=== PATIENT | female | born 1990 | race Caucasian/White ===

== ENCOUNTER 2018-07-21 22:58 | Emergency (ER) | payer OTHER ==
--- NOTE | 2018-07-21 23:54 | ER ---
Nurse's Notes [facility] Name: Mary Garrison Age: 27 yrs Sex: Female : 1990 Arrival Date: 07/21/2018 Time: 22:59 Bed 30 Private MD: Ken Olivia Diagnosis: Local infection of the skin and subcutaneous tissue, unspecified Presentation: 07/21 23:22 Presenting complaint: Patient states: she noticed some swelling/bump on her left lower mg2 leg tonight \T\ 1900H. denies insect bite or trauma. Transition of care: patient was not received from another setting of care. Onset of symptoms was July 20, 2018. Risk Assessment: Do you want to hurt yourself or someone else? Patient reports no desire to harm self or others. Initial Sepsis Screen: Does the patient meet any 2 criteria? No. Patient's initial sepsis screen is negative. Does the patient have a suspected source of infection? No. Patient's initial sepsis screen is negative. Care prior to arrival: None. 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 - Social history:: Smoking status: Patient/guardian denies using tobacco, Patient uses alcohol, occasionally. Patient/guardian denies using street drugs, IV drugs. - Ebola Screening: : No symptoms or risks identified at this time. Screenin:36 Abuse screen: Denies threats or abuse. Denies injuries from another. Nutritional mg2 screening: No deficits noted. Tuberculosis screening: No symptoms or risk factors identified. Fall Risk None identified. Assessment: 23:36 General: Appears in no apparent distress. comfortable, Behavior is calm, cooperative. mg2 Pain: Complains of pain in left leg Pain does not radiate. Pain currently is 7 out of 10 on a pain scale. Quality of pain is described as aching, Pain began gradually, 2-3 days ago. Is intermittent. Neuro: Level of Consciousness is awake, alert, obeys commands, Oriented to person, place, time, situation. Cardiovascular: Capillary refill < 3 seconds Patient's skin is warm and dry. Respiratory: Airway is patent Respiratory effort is even, unlabored, Respiratory pattern is regular, symmetrical. GI: No signs and/or symptoms were reported involving the gastrointestinal system. : No signs and/or symptoms were reported regarding the genitourinary system. EENT: No signs and/or symptoms were reported regarding the EENT system. Derm: Skin is intact, Skin is pink, warm \T\ dry. normal, swelling. Musculoskeletal: Circulation, motion, and sensation intact. Vital Signs: 23:24 BP 141 / 97; Pulse 91; Resp 18; Temp 99.1(O); Pulse Ox 98% ; Pain 7/10; mg2 ED Course: 22:59 Patient arrived in ED. am2 23:00 Ken Olivia DO is Private Physician. am2 23:21 Aaron Orozco RN is Primary Nurse. mg2 23:24 Triage completed. mg2 23:25 Kris Hinds PA is PHCP. jr8 23:25 Joe Kellogg MD is Attending Physician. jr8 23:36 Arm band placed on. mg2 23:39 Patient has correct armband on for positive identification. mg2 23:53 Ken Olivia DO is Referral Physician. jr8 07/22 00:01 No provider procedures requiring assistance completed. Patient did not have IV access mg2 during this emergency room visit. Administered Medications: No medications were administered Outcome: 07/21 23:54 Discharge ordered by . jr8 07/22 00:02 Discharged to home ambulatory. mg2 Condition: stable Discharge instructions given to patient, Instructed on discharge instructions, follow up and referral plans. medication usage, Demonstrated understanding of instructions, follow-up care, medications, Prescriptions given X 2. 00:02 Patient left the ED. mg2 Signatures: Kris Hinds PA PA jr8 Mirela Nash am2 Aaron Orozco, JEANETH RN mg2
--- NOTE | 2018-07-21 23:54 | EDPHYS ---
Physician Documentation [facility] Name: Mary Garrison Age: 27 yrs Sex: Female : 1990 Arrival Date: 07/21/2018 Time: 22:59 Bed 30 Private MD: Mary Ellen Oliviah ED Physician Joe Kellogg HPI: 07/21 23:48 This 27 yrs old Female presents to ER via Ambulatory with complaints of Leg jr8 Pain. 23:48 The complaints affect the lateral aspect of left calf. Onset: The symptoms/episode jr8 began/occurred acutely, today. Modifying factors: The symptoms are alleviated by nothing. the symptoms are aggravated by pressure. Associated signs and symptoms: The patient has no apparent associated signs or symptoms. Severity of symptoms: At their worst the symptoms were mild, in the emergency department the symptoms are unchanged. The patient has not experienced similar symptoms in the past. The patient has not recently seen a physician. Patient noticed red region to lateral calf after sitting on floor and noticing that area was painful. Concerned for infection . 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 - Social history:: Smoking status: Patient/guardian denies using tobacco, Patient uses alcohol, occasionally. Patient/guardian denies using street drugs, IV drugs. - Ebola Screening: : No symptoms or risks identified at this time. ROS: 23:48 Eyes: Negative for injury, pain, redness, and discharge, ENT: Negative for injury, jr8 pain, and discharge, Neck: Negative for injury, pain, and swelling, Cardiovascular: Negative for chest pain, palpitations, and edema, Respiratory: Negative for shortness of breath, cough, wheezing, and pleuritic chest pain, Abdomen/GI: Negative for abdominal pain, nausea, vomiting, diarrhea, and constipation, Back: Negative for injury and pain, MS/Extremity: Negative for injury and deformity, Neuro: Negative for headache, weakness, numbness, tingling, and seizure. 23:48 Skin: Positive for erythema, swelling, of the lateral aspect of left calf. Exam: 23:48 Constitutional: This is a well developed, well nourished patient who is awake, alert, jr8 and in no acute distress. Cardiovascular: Regular rate and rhythm with a normal S1 and S2. No gallops, murmurs, or rubs. Normal PMI, no JVD. No pulse deficits. Respiratory: Lungs have equal breath sounds bilaterally, clear to auscultation and percussion. No rales, rhonchi or wheezes noted. No increased work of breathing, no retractions or nasal flaring. MS/ Extremity: Pulses equal, no cyanosis. Neurovascular intact. Full, normal range of motion. Equal leg circumference Neuro: Awake and alert, GCS 15, oriented to person, place, time, and situation. Cranial nerves II-XII grossly intact. Motor strength 5/5 in all extremities. Sensory grossly intact. Cerebellar exam normal. Normal gait. 23:48 Skin: cellulitis, that is mild, well demarcated, on the lateral aspect of left calf. Vital Signs: 23:24 BP 141 / 97; Pulse 91; Resp 18; Temp 99.1(O); Pulse Ox 98% ; Pain 7/10; mg2 MDM: 23:25 Patient medically screened. jr8 23:53 Data reviewed: vital signs, nurses notes, and as a result, I will discharge patient. jr8 Data interpreted: Pulse oximetry: on room air is 98 %. Interpretation: normal. Counseling: I had a detailed discussion with the patient and/or guardian regarding: the historical points, exam findings, and any diagnostic results supporting the discharge/admit diagnosis, the need for outpatient follow up, a family practitioner, to return to the emergency department if symptoms worsen or persist or if there are any questions or concerns that arise at home. Administered Medications: No medications were administered Disposition: 07/22 02:13 Co-signature as Attending Physician, Joe Kellogg MD I agree with the assessment and ps1 plan of care. Disposition: 07/21/18 23:54 Discharged to Home. Impression: Local infection of the skin and subcutaneous tissue, unspecified. - Condition is Stable. - Discharge Instructions: Cellulitis, Adult. - Prescriptions for Bactroban 2 % Topical Ointment - Apply to affected area 1 application by TOPICAL route every 12 hours; 30 gram. Bactrim DS 800- 160 mg Oral Tablet - take 1 tablet by ORAL route every 12 hours for 10 days; 20 tablet. - Medication Reconciliation Form, Thank You Letter, Antibiotic Education, Prescription Opioid Use form. - Follow up: Ken Olivia DO; When: 5 - 6 days; Reason: Recheck today's complaints, Continuance of care, Re-evaluation by your physician. - Problem is new. - Symptoms have improved. Signatures: Kris Hinds PA PA jr8 Joe Kellogg MD MD ps1 Aaron Orozco RN RN mg2 Corrections: (The following items were deleted from the chart) 00:02 07/21 23:54 07/21/2018 23:54 Discharged to Home. Impression: Local infection of the mg2 skin and subcutaneous tissue, unspecified. Condition is Stable. Forms are Medication Reconciliation Form, Thank You Letter, Antibiotic Education, Prescription Opioid Use. Follow up: Ken Olivia; When: 5 - 6 days; Reason: Recheck today's complaints, Continuance of care, Re-evaluation by your physician. Problem is new. Symptoms have improved. jr8
== END 2018-07-22 00:02 | disposition home or self-care (01) ==
LOC: ER 22:58
DX: L08.9 Local infection of the skin and subcutaneous tissue, unspecified (principal); Z88.5 Allergy status to narcotic agent
CPT/HCPCS: 99282

== ENCOUNTER 2020-08-18 10:12 | Emergency (ER) | payer BC, OTHER ==
[2020-08-18] MEDS ORDERED: LIDOCAINE VISCOUS 2% SOLN 15 ML UDC ONE (10:57)
[2020-08-18] MEDS ORDERED: LIDOCAINE 1% W/EPI 1:100,000 MDV 20 ML VIAL ONE (10:57)
--- NOTE | 2020-08-18 11:36 | ER ---
Nurse's Notes [facility] Name: Mary Garrison Age: 29 yrs Sex: Female : 1990 Arrival Date: 08/18/2020 Time: 10:17 Bed 20 Private MD: Ken Olivia Diagnosis: Unspecified hemorrhoids Presentation: 08/18 10:31 Coronavirus screen: At this time, the client does not indicate any symptoms associated ah with coronavirus-19. Ebola Screen: No symptoms or risks identified at this time. Initial Sepsis Screen: Does the patient meet any 2 criteria? No. Patient's initial sepsis screen is negative. Does the patient have a suspected source of infection? No. Patient's initial sepsis screen is negative. Risk Assessment: Do you want to hurt yourself or someone else? Patient reports no desire to harm self or others. Onset of symptoms is unknown. 10:31 Method Of Arrival: Ambulatory 10:31 Acuity: RAJNI 3 10:31 Chief complaint: Patient states: hemorrhoid that is hard and painful and not responding ah to OTC medication. Historical: - Allergies: 12:06 vicodine; ah - PMHx: 12:06 None; ah - PSHx: 12:06 None; ah - Immunization history:: Adult Immunizations up to date. - Social history:: Smoking status: Patient denies any tobacco usage or history of. Screenin:32 Abuse screen: Denies threats or abuse. Nutritional screening: No deficits noted. Tuberculosis screening: No symptoms or risk factors identified. Fall Risk None identified. Assessment: 10:30 General: Appears uncomfortable, Behavior is calm, cooperative, appropriate for age. Pain: Complains of pain in hemorrhoids. Neuro: Level of Consciousness is awake, alert, obeys commands, Oriented to person, place, time, situation, Appropriate for age. Cardiovascular: Capillary refill < 3 seconds Patient's skin is warm and dry. Respiratory: Airway is patent Respiratory effort is even, unlabored, Respiratory pattern is regular, symmetrical. GI: Abdomen is non-distended, Rectal exam: Hemorrhoids noted, Reports hemorrhoids, since 1 week, not responding to OTC medications. : No signs and/or symptoms were reported regarding the genitourinary system. Derm: No signs and/or symptoms reported regarding the dermatologic system. Skin is intact, is healthy with good turgor. Vital Signs: 10:24 BP 119 / 74; Pulse 79; Resp 16; Temp 98.6(O); Pulse Ox 100% on R/A; Weight 58.06 kg; [facility] Height 5 ft. 2 in. (157.48 cm); Pain 10/10; 10:24 Body Mass Index 23.41 (58.06 kg, 157.48 cm) [facility] ED Course: 10:17 Patient arrived in ED. [facility] 10:17 Ken Olivia DO is Private Physician. [facility] 10:18 Zak Uriarte PA is PHCP. [facility] 10:18 Eusebio Corea MD is Attending Physician. [facility] 10:25 Patient has correct armband on for positive identification. Bed in low position. Call [facility] light in reach. Warm blanket given. Pulse ox on. NIBP on. 10:29 Lynette Covarrubias, JEANETH is Primary Nurse. 10:31 Triage completed. 11:34 Terell Miller MD is Referral Physician. 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 Patient did not have IV access during this emergency room visit. Administered Medications: 10:50 Drug: Viscous Lidocaine Liquid (4 %) 10 ml Route: Mucous Membrane; Outcome: 11:35 Discharge ordered by . [facility] 12:05 Discharged to home ambulatory. 12:05 Condition: good 12:05 Discharge instructions given to patient, Instructed on discharge instructions, follow up and referral plans. Demonstrated understanding of instructions, follow-up care, medications. 12:08 Patient left the ED. Signatures: Zak Uriarte PA PA jmm Martinez, Maria [facility] Macho Persaud [facility] Lynette Covarrubias, RN RN
--- NOTE | 2020-08-18 11:36 | EDPHYS ---
Physician Documentation [facility] Name: Mary Garrison Age: 29 yrs Sex: Female : 1990 Arrival Date: 08/18/2020 Time: 10:17 Bed 20 Private MD: Ken Olivia ED Physician Eusebio Corea HPI: 08/18 10:20 This 29 yrs old Female presents to ER via Ambulatory with complaints of jmm Hemorrhoids. 10:20 The patient presents to the emergency department with swelling. Onset: The jmm symptoms/episode began/occurred gradually. Modifying factors: The symptoms are alleviated by nothing, The symptoms are aggravated by nothing. This is a 29 year old female that presents to the ED with complaints of external hemorrhoids which have increased in swelling since onset. Patient admits to mild bleeding. Denies fever. Has had similar episodes in the past but more intense today. . Historical: - Allergies: 12:06 vicodine; ah - PMHx: 12:06 None; ah - PSHx: 12:06 None; ah - Immunization history:: Adult Immunizations up to date. - Social history:: Smoking status: Patient denies any tobacco usage or history of. ROS: 10:20 Constitutional: Negative for fever, chills, and weight loss, Cardiovascular: Negative jmm for chest pain, palpitations, and edema, Respiratory: Negative for shortness of breath, cough, wheezing, and pleuritic chest pain. 10:20 : Positive for rectal pain. 10:20 All other systems are negative. Exam: 10:20 Constitutional: This is a well developed, well nourished patient who is awake, alert, jmm and in no acute distress. Head/Face: atraumatic. Eyes: EOMI, no conjunctival erythema appreciated ENT: Moist Mucus Membranes Neck: Trachea midline, Supple Chest/axilla: Normal chest wall appearance and motion. Cardiovascular: Regular rate and rhythm. No edema appreciated Respiratory: Normal respirations, no respiratory distress appreciated 10:20 Back: Normal ROM Skin: General appearance color normal MS/ Extremity: Moves all extremities, no obvious deformities appreciated, no edema noted to the lower extremities Neuro: Awake and alert, normal gait Psych: Behavior is normal, Mood is normal, Patient is cooperative and pleasant 10:20 Abdomen/GI: Inspection: abdomen appears normal, Bowel sounds: normal, Rectal exam: hemorrhoid(s), external, with inflammation, with pain, without thrombosis. Vital Signs: 10:24 BP 119 / 74; Pulse 79; Resp 16; Temp 98.6(O); Pulse Ox 100% on R/A; Weight 58.06 kg; 5 Height 5 ft. 2 in. (157.48 cm); Pain 10/10; 10:24 Body Mass Index 23.41 (58.06 kg, 157.48 cm) [facility] MDM: 10:29 Patient medically screened. [facility] 11:31 Data reviewed: vital signs, nurses notes. Counseling: I had a detailed discussion with analilia the patient and/or guardian regarding: the historical points, exam findings, and any diagnostic results supporting the discharge/admit diagnosis, the need for outpatient follow up, to return to the emergency department if symptoms worsen or persist or if there are any questions or concerns that arise at home. ED course: I discussed risks/benefits of incision of hemorrhoid vs medical treatment. Patient elected , through shared decision making, to opt for medical treatment and will return to the ED if symptoms worsen. . 08/18 10:20 Order name: Natalie suero; Complete Time: 10:29 [facility] Administered Medications: 10:50 Drug: Viscous Lidocaine Liquid (4 %) 10 ml Route: Mucous Membrane; Disposition: 08/19 07:11 Co-signature as Attending Physician, Eusebio Corea MD I agree with the assessment and [facility] plan of care. Disposition: 08/18/20 11:35 Discharged to Home. Impression: Unspecified hemorrhoids. - Condition is Stable. - Discharge Instructions: Hemorrhoids, How to Take a Sitz Bath. - Prescriptions for Anusol- HC 2.5 % Rectal Cream - Apply to affected area 1 application by TOPICAL route every 8 hours As needed; 30 gram. Colace 100 mg Oral Capsule - take 1 tablet by ORAL route 2-3 times daily; 30 tablet. - Medication Reconciliation Form, Thank You Letter, Antibiotic Education, Prescription Opioid Use form. - Follow up: Terell Miller MD; When: 2 - 3 days; Reason: Recheck today's complaints, Continuance of care, Re-evaluation by your physician. Signatures: Eusebio Corea MD MD cha Mickail, Joel, PA PA [facility] Lynette Covarrubias, RN [facility] Corrections: (The following items were deleted from the chart) 08/18 11:35 11:35 08/18/2020 11:35 Discharged to Home. Impression: Hemorrhoids and perianal venous jmm thrombosis. Condition is Stable. Forms are Medication Reconciliation Form, Thank You Letter, Antibiotic Education, Prescription Opioid Use. Follow up: Terell Miller; When: 2 - 3 days; Reason: Recheck today's complaints, Continuance of care, Re-evaluation by your physician. analilia 12:08 11:35 08/18/2020 11:35 Discharged to Home. Impression: Unspecified hemorrhoids. Condition is Stable. Discharge Instructions: Hemorrhoids. Forms are Medication Reconciliation Form, Thank You Letter, Antibiotic Education, Prescription Opioid Use. Follow up: Terell Miller; When: 2 - 3 days; Reason: Recheck today's complaints, Continuance of care, Re-evaluation by your physician. analilia
[2020-08-18 12:13] VITALS: BP 119/74; TEMP 98.6; O2SAT 100
--- OUTSIDE RECORDS SUMMARY | 2020-08-22 00:26 | XMS REPORT ---
:1990 Author Organization [employer] Care Team Providers Name Role Phone Ken Olivia Provider Role Unavailable Allergies No Known Allergies Problems Problem Type Condition Code Onset Dates Condition Statu s Problem Insomnia, unspecified type G47.00 A ctive Problem Chronic fatigue R53.82 Active Assessment Adult BMI 25.0-25.9 kg/sq m Z68.25 Active Problem Migraine without aura and without G43.009 Active status migrainosus, not intractable Problem Vitamin D deficiency E55.9 Active Problem Estrogen excess E28.0 Active Problem Anxiety disorder F41.9 Active Problem Allergic rhinitis, seasonal J30.2 Active Problem Depression F32.9 Active Problem IBS (irritable bowel syndrome) K58.9 Active Medications Medication Code Code Instructions Start End Status Dosage System Date Date BusPIRone HCl ND 64957106120 5 MG Orally Active 1 tablet TWICE a day Lomaira ND 25575380138 8 MG Orally Jul 04Jul Active 1 tablet Three times a 2019 19, 30 minutes day 2019 before meals NuvaRing ND 00721211726 0.12-0.015 Active 1 ring MG/24HR Vaginal leave in place for 3 weeks, remove, and replace with a new ring after 7 day break Phentermine HCl ND 30868939068 15 MG Orally May 03May Inacti ve Take 1 Once a day 2019 QAm x 2 weeks then 2 Caps qAM x 1 week Fluoxetine HCl ND 88588679410 20 MG Orally Active Take 1/2 Once a day tab QD x 1 week then 1 tab QD Sumatriptan ND 63515941178 50 MG Orally Active Dev e 1 tab Succinate Once a day at the onset of severe COLE. May repeat x 1 in 2 hours. Max 2 tabs/24 hours. Results No Known Results Summary Purpose [employer] Submission
--- OUTSIDE RECORDS SUMMARY | 2020-08-22 00:26 | XMS REPORT ---
:1990 Author Organization [employer] Care Team Providers Name Role Phone Mary Ellen Oliviah Provider Role Unavailable Allergies, Adverse Reactions, Alerts Substance Reaction Event Type N.K.D.A. Info Not Available Non Drug Allergy Problems Problem Type Condition Code Onset Dates Condition Statu s Problem Insomnia, unspecified type G47.00 A ctive Problem Chronic fatigue R53.82 Active Problem Migraine without aura and without G43.009 Active status migrainosus, not intractable Assessment Encounter for dietary counseling Z71.3 Active and surveillance Problem Vitamin D deficiency E55.9 Active Problem Estrogen excess E28.0 Active Problem Anxiety disorder F41.9 Active Problem Allergic rhinitis, seasonal J30.2 Active Problem Depression F32.9 Active Problem IBS (irritable bowel syndrome) K58.9 Active Assessment Vitamin D deficiency E55.9 Active Assessment Depression F32.9 Active Assessment IBS (irritable bowel syndrome) K58.9 Active Assessment Allergic rhinitis, seasonal J30.2 Active Assessment Anxiety disorder F41.9 Active Assessment Insomnia, unspecified type G47.00 A ctive Assessment Estrogen excess E28.0 Active Assessment Adult BMI 25.0-25.9 kg/sq m Z68.25 Active Assessment Chronic fatigue R53.82 Active Assessment Migraine without aura and without G43.009 Active status migrainosus, not intractable Medications Medication Code Code Instructions Start End Status Dosage System Date Date Sumatriptan [facility] 61778327533 50 MG Orally Active Dev e 1 tab Succinate Once a day at the onset of severe COLE. May repeat x 1 in 2 hours. Max 2 tabs/24 hours. Phentermine HCl [facility] 83892785693 37.5 MG Orally Activ e 1 capsule Once a day BusPIRone HCl [facility] 32141172733 5 MG Orally Active 1 tablet TWICE a day BusPIRone HCl ND 25500478971 5 MG Orally Inactive 1 tablet TWICE a day NuvaRing [facility] 02574084131 0.12-0.015 Active 1 ring MG/24HR Vaginal leave in place for 3 weeks, remove, and replace with a new ring after 7 day break Fluoxetine HCl [facility] 94503542284 20 MG Orally Active Take 1/2 Once a day tab QD x 1 week then 1 tab QD Results No Known Results Summary Purpose [employer] Submission
--- OUTSIDE RECORDS SUMMARY | 2020-08-22 00:26 | XMS REPORT ---
[...] Start End Status Dosage System Date Date Fluoxetine HCl ND 69861799881 20 MG Orally Active Take 1/2 Once a day tab QD x 1 week then 1 tab QD Phentermine HCl ND 34235020948 8 MG Orally Active 1 capsule Three times a day BusPIRone HCl ND 54935919632 5 MG Orally Active 1 tablet TWICE a day NuvaRing ND 85698393205 0.12-0.015 Active 1 ring MG/24HR Vaginal leave in place for 3 weeks, remove, and replace with a new ring after 7 day break BusPIRone HCl ND 85028613748 5 MG Orally Inactive 1 tablet TWICE a day Sumatriptan ND 22905707431 50 MG Orally Active Dev e 1 tab Succinate Once a day at the onset of severe COLE. May repeat x 1 in 2 hours. Max 2 tabs/24 hours. Results No Known Results Summary Purpose [employer] Submission
--- OUTSIDE RECORDS SUMMARY | 2020-08-22 00:26 | XMS REPORT ---
[...] Status Dosage System Date Date BusPIRone HCl NDC 97516664784 5 MG Orally Active 1 tablet TWICE a day Lomaira NDC 98888177797 8 MG Orally Jul 04Jul Active 1 tablet Three times a 2019 19, 30 minutes day 2020 before meals Lomaira NDC 27499781668 8 MG Orally Jul 23, Aug 22, Active 1 table t Three times a 2019 2019 30 minutes day before meals Sumatriptan ND 17192140299 50 MG Orally Active Dev e 1 tab Succinate Once a day at the onset of severe COLE. May repeat x 1 in 2 hours. Max 2 tabs/24 hours. BusPIRone HCl NDC 14131968518 5 MG Orally Inactive 1 tablet TWICE a day NuvaRing [facility] 20311367357 0.12-0.015 Active 1 ring MG/24HR Vaginal leave in place for 3 weeks, remove, and replace with a new ring after 7 day break Fluoxetine HCl [facility] 88721860865 20 MG Orally Active Take 1/2 Once a day tab QD x 1 week then 1 tab QD Results No Known Results Summary Purpose [employer] Submission
--- OUTSIDE RECORDS SUMMARY | 2020-08-22 00:26 | XMS REPORT ---
:1990 Author Organization eClinicalWorks Care Team Providers Name Role Phone OliviaMary Ellenh Provider Role Unavailable Allergies No Known Allergies Problems Problem Type Condition Code Onset Dates Condition Statu s Problem Insomnia, unspecified type G47.00 A ctive Problem Chronic fatigue R53.82 Active Assessment Recurrent oral ulcers K13.79 Active Problem Migraine without aura and without G43.009 Active status migrainosus, not intractable Problem Vitamin D deficiency E55.9 Active Problem Estrogen excess E28.0 Active Problem Anxiety disorder F41.9 Active Problem Allergic rhinitis, seasonal J30.2 Active Problem Depression F32.9 Active Problem IBS (irritable bowel syndrome) K58.9 Active Medications No Known Medications Results No Known Results Summary Purpose eClinicalWorks Submission
--- OUTSIDE RECORDS SUMMARY | 2020-08-22 00:27 | XMS REPORT | Continuity of Care Document ---
:1990 Author Organization [facility] t Address [address] [place] [address] Care Team Providers Name Role Phone Unavailable Unavailable Unavailable Problems This patient has no known problems. Allergies, Adverse Reactions, Alerts This patient has no known allergies or adverse reactions. Medications Ordered Filled Start Stop Current Ordering Indication Dosage Frequency Signature Comments Components Source Medication Medication Date Date Medication? Clinician (SIG) Name Name Lomaira Lomaira 2020- Yes Ken [address] [facility] 9-08 10-08 Olivia 30 minutes [facility] :00 meals l Outpat[facility] ent Clinics BusPIRone BusPIRone Yes Ken [address] [facility] HCl HCl 8-28 [facility] Sumatriptan Sumatriptan Yes Ken Take [address] [facility] Succinate Succinate 8-28 Olivia at the [facility] - 00[facility]: onset of [facility] 00 severe COLE. l May repeat Outpati x 1 in 2 ent hours. Max Clinics 2 tabs/24 hours. Fluoxetine Fluoxetine Yes Ken Take 1/[address] [facility] HCl HCl Olivia tab QD x 1 [facility] then [facility] NuvaRing NuvaRing Yes Ken [address] [facility] in [facility] for [facility] 3 weeks, l remove, Outpati and ent replace Clinics with a new ring after 7 day break Procedures This patient has no known procedures. Encounters Start End Encounter Admission Attending Care Care Encounter Source Date/Time Date/Time Type Type Clinicians Facility Department ID 2020-08-20 2020-08-20 Outpatient [facility] [id number] [facility]00 [facility] Outpat[facility] Clinics 2020-07-23 2020-07-23 [facility] [id number] [facility] 13:30:00 13:30:00 t [employer] [facility] Medicine l Medicine Outpati ent Clinics 2020-07-03 2020-07-03 [facility] [id number] [facility] 15:45:00 15:45:00 t [place] s - USEREADY [facility] Medicine l Medicine Outpati ent Clinics 2020-06-24 2020-06-24 [facility] [id number] 13:45:00 13:45:00 t [place] s [facility] Medicine Outpati ent Clinics 2020-05-27 2020-05-27 [facility] [id number] [facility] 14:00:00 14:00:00 t [employer] [facility] Medicine l Medicine Outpati ent Clinics 2020-05-21 2020-05-21 [facility] [id number] 11:23:00 11:23:00 t [employer] [facility] Medicine l Medicine Outpati ent Clinics 2020-05-03 2020-05-03 [facility] [id number] 10:15:00 10:15:00 t [employer] [facility] l Medicine Outpati ent Clinics 2020-04-25 2020-04-25 [facility] [id number] 08:45:00 08:45:00 t [place] s [facility] Medicine Outpati ent Clinics 2020-04-09 2020-04-09 [facility] [id number] [facility] 16:15:00 16:15:00 t [place] s [facility] l Medicine Outpati ent Clinics 2018-08-09 2018-08-09 [facility] [id number] [facility] 13:00:00 13:00:00 t [employer] [facility] 2018-07-12 2018-07-12 [facility] [id number] [facility] 13:30:00 13:30:00 t [employer] [facility] 2018-06-23 2018-06-23 [facility] [id number] [facility] 15:30:00 15:30:00 [facility] [facility] ent Clinics Results This patient has no known results.
== END 2020-08-18 12:08 | disposition home or self-care (01) ==
LOC: ER 10:12
DX: K64.9 Unspecified hemorrhoids (principal); Z88.5 Allergy status to narcotic agent
CPT/HCPCS: 99283

== ENCOUNTER 2021-03-01 23:11 | Emergency (ER) | payer BC ==
--- OUTSIDE RECORDS SUMMARY | 2021-03-01 23:14 | XMS REPORT | Continuity of Care Document ---
:1990 Author Organization [facility] t Address [address] [place] [address] Care Team Providers Name Role Phone Unavailable Unavailable Unavailable Problems This patient has no known problems. Allergies, Adverse Reactions, Alerts This patient has no known allergies or adverse reactions. Medications Ordered Filled Start Stop Current Ordering Indication Dosage Frequency Signature Comments Components Source Medication Medication Date Date Medication? Clinician (SIG) Name Name Robe Kisermaira 2020-0 2020- No Ken [address] [facility] 9-08 10-08 Olivia 30 minutes [facility] before [facility] 00 :00 meals l Outpati ent Clinics BusPIRone BusPIRone 0 Yes Ken [address] [facility] HCl HCl 8-28 [facility] Sumatriptan Sumatriptan Yes Ken Take [...] week then [facility] 1 [facility] NuvaRing NuvaRing Yes Ken [address] [facility] in [facility] for [facility] 3 weeks, l remove, Outpati and ent replace Clinics with a new ring after 7 day break Procedures This patient has no known procedures. Encounters Start End Encounter Admission Attending Care Care Encounter Source Date/Time Date/Time Type Type Clinicians Facility Department ID 2021-02-26 2021-02-26 Outpatient [facility] [id number] [facility] 2021-02-21 2021-02-21 Outpatient [facility] [id number] [facility] 2021-01-17 2021-01-17 Outpatient [facility] [id number] [facility] 2020-12-20 2020-12-20 Outpatient [facility] [id number] [facility] 2020-11-19 2020-11-19 Outpatient [facility] [id number] [facility] 2020-10-15 2020-10-15 Outpatient [facility] [id number] [facility] 2020-10-08 2020-10-08 Outpatient [facility] [id number] [facility] 2020-09-19 2020-09-19 Outpatient [facility] [id number] [facility] 2020-09-17 2020-09-17 Outpatient [facility] [id number] [facility] 2020-08-20 2020-08-20 Outpatient [facility] [id number] [facility] 2020-07-23 2020-07-23 [facility] [id number] [facility] 13:30:00 13:30:00 Fly [place] [facility] Outpati ent Clinics 2020-07-03 2020-07-03 [facility] [id number] [facility] 15:45:00 15:45:00 [place] [employer] [place] s - Drive [facility] l Medicine Outpati ent Clinics 2020-06-24 2020-06-24 [facility] [id number] 13:45:00 13:45:00 [place] [employer] s - Drive [facility] Medicine l Medicine Outpati ent Clinics 2020-05-27 2020-05-27 [facility] [id number] [address] 14:00:00 14:00:00 [place] [employer] s - Drive [facility] Medicine l Medicine Outpati ent Clinics 2020-05-21 2020-05-21 [facility] [id number] [facility] 11:23:00 11:23:00 [place] - Drive [facility] l Medicine Outpati ent Clinics 2020-05-03 2020-05-03 [facility] [id number] [address] 10:15:00 10:15:00 [place] [employer] s - Drive [facility] Medicine l Medicine Outpati ent Clinics 2020-04-25 2020-04-25 [facility] [id number] [address] 08:45:00 08:45:00 [place] - Drive [facility] Medicine l Medicine Outpati ent Clinics 2020-04-09 2020-04-09 [facility] [id number] 16:15:00 16:15:00 [place] [employer] s - Drive [facility] Medicine l Medicine Outpati ent Clinics 2018-08-09 2018-08-09 [facility] [id number] 13:00:00 13:00:00 [place] [employer] [place] - Drive [facility] Medicine l Medicine Outpati ent Clinics 2018-07-12 2018-07-12 [facility] [id number] [facility] 13:30:00 13:30:00 [place] - Drive [facility] Medicine l Medicine Outpati ent Clinics 2018-06-23 2018-06-23 [facility] [id number] 15:30:00 15:30:00 [place] - Drive [facility] l Medicine Outpati ent Clinics Results This patient has no known results.
[2021-03-02] MEDS ORDERED: MORPHINE 4 MG/ML SYR ONE (01:35)
[2021-03-02 01:43] LABS: Urine Specific Gravity/Preg 1.025 (1.005-1.030)
--- NOTE | 2021-03-02 02:05 | EDPHYS ---
Physician Documentation [facility] Name: Mary Garrison Age: 30 yrs Sex: Female : 1990 Arrival Date: 03/01/2021 Time: 23:14 Bed 6 Private MD: ED Physician Sudarshan Gillespie HPI: 03/02 00:53 This 30 yrs old Female presents to ER via Ambulatory with complaints of Back mh7 Pain, Back Injury. 00:53 The patient presents with pain that is acute, and an injury. The symptoms are located mh7 in the thoracic area. 00:54 Onset: The symptoms/episode began/occurred just prior to arrival, today. The pain does mh7 not radiate. 00:54 Associated signs and symptoms: Pertinent negatives: abdominal pain, chest pain, mh7 constipation, dysuria, fever, headache, hematuria, incontinence, nausea, numbness, tingling, urinary retention, vomiting, weakness. The problem was sustained when lifting . Modifying factors: The patient symptoms are alleviated by nothing, the patient symptoms are aggravated by any movement. Severity of symptoms: At their worst the symptoms were moderate, earlier today, in the emergency department the symptoms are unchanged. [employer]: 03/01 23:39 LMP N/A - Irregular menses em Historical: - Allergies: 23:39 vicodine; em - PMHx: 23:39 None; em - PSHx: 23:39 None; em - Immunization history:: Adult Immunizations up to date. - Social history:: Smoking status: Patient denies any tobacco usage or history of. ROS: 03/02 00:54 Constitutional: Negative for fever, chills, and weight loss, Eyes: Negative for injury, mh7 pain, redness, and discharge, ENT: Negative for injury, pain, and discharge, Neck: Negative for injury, pain, and swelling, Cardiovascular: Negative for chest pain, palpitations, and edema, Respiratory: Negative for shortness of breath, cough, wheezing, and pleuritic chest pain, Abdomen/GI: Negative for abdominal pain, nausea, vomiting, diarrhea, and constipation, : Negative for injury, bleeding, discharge, and swelling, MS/Extremity: Negative for injury and deformity, Skin: Negative for injury, rash, and discoloration, Neuro: Negative for headache, weakness, numbness, tingling, and seizure, Psych: Negative for depression, anxiety, suicide ideation, homicidal ideation, and hallucinations, Allergy/Immunology: Negative for hives, rash, and allergies, Endocrine: Negative for neck swelling, polydipsia, polyuria, polyphagia, and marked weight changes, Hematologic/Lymphatic: Negative for swollen nodes, abnormal bleeding, and unusual bruising. Exam: 00:54 Head/Face: Normocephalic, atraumatic. Eyes: Pupils equal round and reactive to light, mh7 extra-ocular motions intact. Lids and lashes normal. Conjunctiva and sclera are non-icteric and not injected. Cornea within normal limits. Periorbital areas with no swelling, redness, or edema. Neck: Trachea midline, no thyromegaly or masses palpated, and no cervical lymphadenopathy. Supple, full range of motion without nuchal rigidity, or vertebral point tenderness. No Meningismus. Chest/axilla: Normal chest wall appearance and motion. Nontender with no deformity. No lesions are appreciated. Cardiovascular: Regular rate and rhythm with a normal S1 and S2. No gallops, murmurs, or rubs. Normal PMI, no JVD. No pulse deficits. Respiratory: Lungs have equal breath sounds bilaterally, clear to auscultation and percussion. No rales, rhonchi or wheezes noted. No increased work of breathing, no retractions or nasal flaring. Abdomen/GI: Soft, non-tender, with normal bowel sounds. No distension or tympany. No guarding or rebound. No evidence of tenderness throughout. 00:54 Skin: Warm, dry with normal turgor. Normal color with no rashes, no lesions, and no evidence of cellulitis. MS/ Extremity: Pulses equal, no cyanosis. Neurovascular intact. Full, normal range of motion. Neuro: Awake and alert, GCS 15, oriented to person, place, time, and situation. Cranial nerves II-XII grossly intact. Motor strength 5/5 in all extremities. Sensory grossly intact. Cerebellar exam normal. Normal gait. Psych: Awake, alert, with orientation to person, place and time. Behavior, mood, and affect are within normal limits. 00:54 Constitutional: The patient appears in no acute distress, alert, awake, uncomfortable. 00:54 Back: pain, that is moderate, of the thoracic area, ROM is painful, with flexion, normal spinal alignment noted, CVA tenderness, is absent, muscle spasm, is not present, Straight leg raises: of both lower extremities does not illicit pain. Vital Signs: 03/01 23:36 BP 138 / 90; Pulse 97; Resp 18; Temp 98.7; Pulse Ox 100% on R/A; Weight 60.78 kg; em Height 5 ft. 3 in. (160.02 cm); Pain 7/10; 03/02 02:25 BP 129 / 94; Pulse 90; Resp 16; Pulse Ox 99% on R/A; lp1 03/01 23:36 Body Mass Index 23.74 (60.78 kg, 160.02 cm) em MDM: 02:02 Differential diagnosis: Fracture Ligament Injury Osteoarthritis ruptured disc, sprain, mh7 vertebral fracture. Data reviewed: vital signs, nurses notes, lab test result(s), UPT: negative. Data interpreted: Pulse oximetry: on room air is 100 %. Interpretation: normal. Counseling: I had a detailed discussion with the patient and/or guardian regarding: the historical points, exam findings, and any diagnostic results supporting the discharge/admit diagnosis, the presence of at least one elevated blood pressure reading (>120/80) during this emergency department visit, lab results, radiology results. Response to treatment: the patient's symptoms have markedly improved after treatment. 02:04 Patient medically screened. [facility] 03/02 00:55 Order name: Urine --Ancillary (enter results); Complete Time: 01:59 tt3 03/02 00:28 Order name: CT Thoracic Spine Wo Cont 7 03/02 00:28 Order name: Urine Test (obtain specimen); Complete Time: 00:46 [facility] Administered Medications: 01:22 Drug: morphine 4 mg Route: IM; Site: right deltoid; rv 02:17 Follow up: Response: No adverse reaction lp1 02:20 Drug: TORadol (ketorolac) 60 mg Route: IM; Site: left gluteus; lp1 02:25 Follow up: Response: Medication administered at discharge. lp1 Disposition: 03/02/21 02:04 Discharged to Home. Impression: Back Sprain, Upper. - Condition is Stable. - Discharge Instructions: Back Injury Prevention, [id number], Back Pain, Adult, Shmx-[id number], Back Exercises, Gbmr-zh-[id number]. - Prescriptions for Ibuprofen 600 mg Oral Tablet - take 1 tablet by ORAL route every 8 hours As needed take with food; 15 tablet. Robaxin 500 mg Oral Tablet - take 1 tablet by ORAL route every 6 hours As needed; 20 tablet. - Medication Reconciliation Form, Thank You Letter, Antibiotic Education, Prescription Opioid Use form. - Follow up: Private Physician; When: 1 - 2 days; Reason: Worsening of condition, Recheck today's complaints, Continuance of care, Re-evaluation by your physician. - Problem is new. - Symptoms have improved. Signatures: Dispatcher [employer] EDMS Hunter You RN RN em Cheryl Wilson RN RN lp1 Ruben Ramirez RN RN Sudarshan Gillespie MD MD mh7 Corrections: (The following items were deleted from the chart) 02:26 02:04 03/02/2021 02:04 Discharged to Home. Impression: Back Sprain, Upper. Condition is lp1 Stable. Forms are Medication Reconciliation Form, Thank You Letter, Antibiotic Education, Prescription Opioid Use. Follow up: Private Physician; When: 1 - 2 days; Reason: Worsening of condition, Recheck today's complaints, Continuance of care, Re-evaluation by your physician. Problem is new. Symptoms have improved. mh7
--- NOTE | 2021-03-02 02:05 | ER ---
Nurse's Notes [facility] Name: Mary Garrison Age: 30 yrs Sex: Female : 1990 Arrival Date: 03/01/2021 Time: 23:14 Bed 6 Private MD: Diagnosis: Back Sprain, Upper Presentation: 03/01 23:36 Chief complaint: Patient states: was moving on the bed which is bed bound, and em hurt back today, reports lower back pain, does not radiate down legs. Coronavirus screen: Client denies travel out of the [place] in the last 14 days. Ebola Screen: Patient negative for fever greater than or equal to 101.5 degrees Fahrenheit, and additional compatible Ebola Virus Disease symptoms Patient denies exposure to infectious person. Patient denies travel to an Ebola-affected area in the 21 days before illness onset. No symptoms or risks identified at this time. Initial Sepsis Screen: Does the patient meet any 2 criteria? HR > 90 bpm. No. Patient's initial sepsis screen is negative. Does the patient have a suspected source of infection? No. Patient's initial sepsis screen is negative. Risk Assessment: Do you want to hurt yourself or someone else? Patient reports no desire to harm self or others. Onset of symptoms was March 01, 2021. 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 - Social history:: Smoking status: Patient denies any tobacco usage or history of. Screenin/18 00:19 Abuse screen: Denies threats or abuse. Denies injuries from another. Nutritional lp1 screening: No deficits noted. Tuberculosis screening: No symptoms or risk factors identified. Fall Risk None identified. Assessment: 00:13 General: Appears in no apparent distress. Behavior is appropriate for age. Pain: lp1 Complains of pain in thoracic area Quality of pain is described as sharp, Aggravated by increased activity. Neuro: Level of Consciousness is awake, alert, obeys commands, Oriented to person, place, time, situation, Gait is steady, Intact. Cardiovascular: Patient's skin is warm and dry. Respiratory: Respiratory effort is even, unlabored. GI: No signs and/or symptoms were reported involving the gastrointestinal system. : No signs and/or symptoms were reported regarding the genitourinary system. EENT: No signs and/or symptoms were reported regarding the EENT system. Derm: Skin is pink, warm \T\ dry. Musculoskeletal: No deficits noted. 02:14 Reassessment: Patient reports some relief with Morphine administered, requesting to lp1 have something for pain until she can have prescriptions filled later today; Verbal order for Toradol 60mg IM now. Vital Signs: 03/01 23:36 BP 138 / 90; Pulse 97; Resp 18; Temp 98.7; Pulse Ox 100% on R/A; Weight 60.78 kg; em Height 5 ft. 3 in. (160.02 cm); Pain 7/10; 03/02 02:25 BP 129 / 94; Pulse 90; Resp 16; Pulse Ox 99% on R/A; lp1 03/01 23:36 Body Mass Index 23.74 (60.78 kg, 160.02 cm) em ED Course: 03/01 23:14 Patient arrived in ED. bp1 23:38 Triage completed. em 23:39 Arm band placed on. em 03/02 00:00 Sudarshan Gillespie MD is Attending Physician. [facility] 00:05 Cheryl Wilson, JEANETH is Primary Nurse. lp1 00:20 Patient has correct armband on for positive identification. lp1 01:15 CT Thoracic Spine Wo Cont In Process Unspecified. EDMS 02:25 No provider procedures requiring assistance completed. Patient did not have IV access lp1 during this emergency room visit. Administered Medications: 01:22 Drug: morphine 4 mg Route: IM; Site: right deltoid; rv 02:17 Follow up: Response: No adverse reaction lp1 02:20 Drug: TORadol (ketorolac) 60 mg Route: IM; Site: left gluteus; lp1 02:25 Follow up: Response: Medication administered at discharge. lp1 Outcome: 02:04 Discharge ordered by . 7 02:25 Discharged to home ambulatory, with friend. lp1 02:25 Condition: good 02:25 Discharge instructions given to patient, Instructed on discharge instructions, follow up and referral plans. medication usage, Demonstrated understanding of instructions, follow-up care, medications, Prescriptions given X 2. 02:26 Patient left the ED. lp1 Signatures: Dispatcher [employer] EDHunter Owusu RN RN em Pena, Laura, RN RN lp1 Ruben Ramirez RN RN rv [place]ia[place], Brittany bp1 Holmes, Maurice, MD MD 7
[2021-03-02] MEDS ORDERED: KETOROLAC 30 MG/ML INJ ONE (02:32)
[2021-03-02 02:39] VITALS: TEMP 98.7
[2021-03-02 02:48] VITALS: BP 129/94; O2SAT 99
--- NOTE | 2021-03-03 11:55 | RAD REPORT ---
EXAM DESCRIPTION: CTThoracic Spine W/o Cont03/02/2021 6:29 am COMPARISON: None. CLINICAL HISTORY: HS MAIN Injury;Pain TECHNIQUE: Axial CT images were obtained through the entire thoracic spine without contrast. Sagit dong and coronal reconstructions are provided. Automated exposure control was utilized on this examina tion as a dose lowering technique. FINDINGS: Vertebrae: Vertebral statures and alignment are normal. No acute fracture, dislocation o r destructive osseous process is present. Spinal canal, foramina, and facet joints: No significant spinal canal or foraminal stenoses. No significant facet arthropathy. Paraspinous soft-tissues: Normal. Other Findings: None. IMPRESSION: No acute findings of the thoracic spine. Electronically signed by: Zeke Dumont MD 03/02/2021 1:28 AM CDT Due to temporary technical issues with the PACS/Fluency reporting system, reports are being signed by the in house radiologist without review as a courtesy to ensure prompt reporting. The interpreting r adiologist is fully responsible for the content of the report.
[2021-03-03 12:07] LABS: Urine Blood NEGATIVE (Negative); Urine Glucose NEGATIVE (Negative); Urine Protein NEGATIVE (Negative); Urine Specific Gravity 1.025 (1.005-1.030)
[2021-03-04 14:47] LABS: Urine Blood Negative (Negative); Urine Glucose Negative (Negative); Urine Protein Negative (Negative); Urine Specific Gravity 1.025 (1.005-1.030)
== END 2021-03-02 02:26 | disposition home or self-care (01) ==
LOC: ER 23:11
DX: S23.3XXA Sprain of ligaments of thoracic spine, initial encounter (principal); X50.0XXA Overexertion from strenuous movement or load, initial encounter; Y93.89 Activity, other specified; Y92.9 Unspecified place or not applicable; Z88.5 Allergy status to narcotic agent
CPT/HCPCS: 72128; 81003; 81025; 96372; 99283

== ENCOUNTER 2021-09-26 11:21 | Emergency (ER) | payer BC ==
[2021-09-26 11:36] LABS: Urine Blood 1+ (Negative); Urine Glucose Negative (Negative); Urine Protein 2+ (Negative); Urine pH 8.5 (5.0-7.0)
[2021-09-26 12:16] LABS: Urine Bacteria >50 /HPF (<20); Urine RBC <5 /HPF (NONE SEEN)
[2021-09-26] MEDS ORDERED: FLUCONAZOLE 100 MG TAB ONE (13:00)
--- NOTE | 2021-09-26 13:00 | ER ---
Nurse's Notes [facility] Name: Mary Garrison Age: 31 yrs Sex: Female : 1990 Arrival Date: 09/26/2021 Time: 11:26 Bed 19 Private MD: Ken Olivia Diagnosis: UTI/ Urinary tract infection, site not specified Presentation: 09/26 11:46 Chief complaint: Patient states: Pain with urination x3 weeks. States lower back pain, vg1 NVD, and odor to urine. Denies ABD pain or blood in urine. Coronavirus screen: Vaccine status: Patient reports receiving the 2nd dose of the covid vaccine. Client denies travel out of the [place] in the last 14 days. Ebola Screen: Patient negative for fever greater than or equal to 101.5 degrees Fahrenheit, and additional compatible Ebola Virus Disease symptoms. Initial Sepsis Screen: Does the patient meet any 2 criteria? No. Patient's initial sepsis screen is negative. Does the patient have a suspected source of infection? No. Patient's initial sepsis screen is negative. Risk Assessment: Do you want to hurt yourself or someone else? Patient reports no desire to harm self or others. Onset of symptoms was September 05, 2021. 11:46 Method Of Arrival: Ambulatory vg1 11:46 Acuity: RAJNI 3 vg1 Triage Assessment: 11:48 General: Appears in no apparent distress. comfortable, Behavior is calm, cooperative. vg1 Pain: Complains of pain in lower back Pain currently is 5 out of 10 on a pain scale. Pain began x3 weeks. EENT: No signs and/or symptoms were reported regarding the EENT system. Neuro: Level of Consciousness is awake, alert, obeys commands, Oriented to person, place, time, situation. Cardiovascular: Patient's skin is warm and dry. Respiratory: Airway is patent Respiratory effort is even, unlabored. GI: Reports diarrhea, nausea, vomiting. : Reports burning with urination, discharge, elkins in color pain in lower back urinary frequency. Derm: Skin is intact, is healthy with good turgor. Musculoskeletal: Circulation, motion, and sensation intact. 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 - Social history:: Smoking status: Patient denies any tobacco usage or history of. Screenin:52 Abuse screen: Denies threats or abuse. Nutritional screening: No deficits noted. vg1 Tuberculosis screening: No symptoms or risk factors identified. Fall Risk None identified. Assessment: 11:52 Reassessment: SEE TRIAGE. vg1 13:03 Reassessment: Patient appears in no apparent distress at this time. No changes from vg1 previously documented assessment. Patient and/or family updated on plan of care and expected duration. Pain level reassessed. Patient is alert, oriented x 3, equal unlabored respirations, skin warm/dry/pink. Vital Signs: 11:46 BP 126 / 90; Pulse 88; Resp 16; Temp 98.1(O); Pulse Ox 99% ; Weight 67.59 kg; Height 5 vg1 ft. 2 in. (157.48 cm); Pain 5/10; 13:04 BP 128 / 92; Pulse 80; Resp 16; Pulse Ox 99% ; vg1 11:46 Body Mass Index 27.25 (67.59 kg, 157.48 cm) vg1 ED Course: 11:26 Patient arrived in ED. am2 11:26 Ken Olivia DO is Private Physician. am2 11:26 Patria Boothe [facility]-C [facility] kb 11:26 Priyank Klein MD is Attending Physician. kb 11:39 Mary Mojica RN is Primary Nurse. vg1 11:48 Triage completed. vg1 11:52 Patient has correct armband on for positive identification. Bed in low position. Call vg1 light in reach. Side rails up X 1. 11:52 No provider procedures requiring assistance completed. Patient did not have IV access vg1 during this emergency room visit. 11:53 Arm band placed on. vg1 Administered Medications: 13:03 Drug: Augmentin (Amoxicillin-Clavulanate) 875 mg Route: PO; vg1 13:12 Follow up: Response: Medication administered at discharge. vg1 13:03 Drug: DiFLUcan (fluconazole) 100 mg Route: PO; vg1 13:12 Follow up: Response: Medication administered at discharge. vg1 Outcome: 12:59 Discharge ordered by MD. sanford 13:11 Discharged to home ambulatory. vg1 13:11 Condition: stable 13:11 Discharge instructions given to patient, Instructed on discharge instructions, follow up and referral plans. medication usage, Demonstrated understanding of instructions, follow-up care, medications, Prescriptions given X 1. 13:12 Patient left the ED. vg1 Addendum: 09/29/2021 11:36 Addendum: Culture Results: Positive urine culture. Bacteria is resistant to, has a a5 intermediate sensitivity, or is not tested against prescribed antibiotics. Report given to ELAYNE for further evaluation and then to heel buffer for follow up with patient. Phone call Attempt #1 left voicemail. 10/02/2021 16:37 Addendum: Culture Results:. i w Signatures: Patria Boothe, ANTENNA INSTALLER-C ANTENNA INSTALLER-Ckb Angelica Noonan, RN RN Lynette Rodriguez RN RN aa5 Mirela Nash Victoria, RN RN vg1
--- NOTE | 2021-09-26 13:00 | EDPHYS ---
Physician Documentation [facility] Name: Mary Garrison Age: 31 yrs Sex: Female : 1990 Arrival Date: 09/26/2021 Time: 11:26 Bed 19 Private MD: Mary Ellen Oliviah ED Physician Priyank Klein HPI: 09/26 13:50 This 31 yrs old Female presents to ER via Ambulatory with complaints of Pain kb With Urination. 13:51 The patient presents with urinary symptoms, dysuria, frequency. Onset: The kb symptoms/episode began/occurred 3 week(s) ago. Modifying factors: The symptoms are alleviated by nothing, the symptoms are aggravated by urinating. Associated signs and symptoms: Pertinent positives: dysuria, urinary frequency. Severity of symptoms: At their worst the symptoms were moderate, in the emergency department the symptoms are unchanged. The patient has not experienced similar symptoms in the past. The patient has been recently seen by a physician: telemed visit, given macrobid but it hasn't helped. Pt reports burning with urination and urinary frequency for 3 weeks. HAd a telemed visit and was given macrobid but it didn't help. States she has had some vaginal itching as well. 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 - Social history:: Smoking status: Patient denies any tobacco usage or history of. ROS: 13:50 Constitutional: Negative for fever, chills, and weight loss. kb 13:50 : Positive for burning with urination, vaginal itching. 13:50 All other systems are negative. Exam: 13:50 Constitutional: This is a well developed, well nourished patient who is awake, alert, kb and in no acute distress. Head/Face: Normocephalic, atraumatic. ENT: Moist Mucous membranes Respiratory: Respirations even and unlabored. No increased work of breathing, no retractions or nasal flaring. Abdomen/GI: Soft, non-tender. No distention Skin: Warm, dry with normal turgor. Normal color. MS/ Extremity: Pulses equal, no cyanosis. Neurovascular intact. Full, normal range of motion. Neuro: Awake and alert, GCS 15, oriented to person, place, time, and situation. Moves all extremities. Normal gait. Psych: Awake, alert, with orientation to person, place and time. Behavior, mood, and affect are within normal limits. Vital Signs: 11:46 BP 126 / 90; Pulse 88; Resp 16; Temp 98.1(O); Pulse Ox 99% ; Weight 67.59 kg; Height 5 vg1 ft. 2 in. (157.48 cm); Pain 5/10; 13:04 BP 128 / 92; Pulse 80; Resp 16; Pulse Ox 99% ; vg1 11:46 Body Mass Index 27.25 (67.59 kg, 157.48 cm) vg1 MDM: 11:29 Patient medically screened. kb 13:51 Data reviewed: vital signs, nurses notes. Data interpreted: Pulse oximetry: on room air kb is 99 %. Interpretation: normal. Counseling: I had a detailed discussion with the patient and/or guardian regarding: the historical points, exam findings, and any diagnostic results supporting the discharge/admit diagnosis, lab results, the need for outpatient follow up, a family practitioner, to return to the emergency department if symptoms worsen or persist or if there are any questions or concerns that arise at home. 09/26 11:27 Order name: Urine Microscopic Only; Complete Time: 12:24 kb 09/26 11:36 Order name: Urine Dipstick-Ancillary [facility] 09/26 11:42 Order name: Urine --Ancillary (enter results) 09/26 11:42 Order name: Urine --Ancillary [facility] 09/26 12:17 Order name: Urine Culture [facility] 09/26 11:27 Order name: Urine Dipstick-Ancillary (obtain specimen); Complete Time: 11:53 kb 09/26 11:27 Order name: Urine Test (obtain specimen); Complete Time: 11:53 kb Administered Medications: 13:03 Drug: Augmentin (Amoxicillin-Clavulanate) 875 mg Route: PO; vg1 13:12 Follow up: Response: Medication administered at discharge. vg1 13:03 Drug: DiFLUcan (fluconazole) 100 mg Route: PO; vg1 13:12 Follow up: Response: Medication administered at discharge. vg1 Disposition: 14:20 Co-signature as Attending Physician, Priyank Klein MD I agree with the assessment and kdr plan of care. Disposition Summary: 09/26/21 12:59 Discharge Ordered Location: Home kb Condition: Stable kb Diagnosis - UTI/ Urinary tract infection, site not specified kb Followup: kb - With: Emergency Department - When: As needed - Reason: Worsening of condition Followup: kb - With: Private Physician - When: 2 - 3 days - Reason: Recheck today's complaints, Continuance of care, Re-evaluation by your physician Discharge Instructions: - Discharge Summary Sheet kb - Urinary Tract Infection, Adult, [id number] kb Forms: - Medication Reconciliation Form kb - Thank You Letter kb - Antibiotic Education kb - Prescription Opioid Use kb Prescriptions: - Augmentin 875-125 mg Oral Tablet - take 1 tablet by ORAL route every 12 hours for 10 days; 20 tablet; Refills: 0, kb Product Selection Permitted Signatures: Dispatcher [employer] EDMS Patria Boothe, INSPECTION MACHINE TENDER-C INSPECTION MACHINE TENDER-Priyank Garcia MD MD kdr Mary Mojica, RN RN vg1
[2021-09-26] MEDS ORDERED: AMOX/K CLAV 875 MG TAB ONE (13:01)
[2021-09-26 13:28] VITALS: BP 128/92; O2SAT 99
--- OUTSIDE RECORDS SUMMARY | 2021-09-27 22:36 | XMS REPORT | Continuity of Care Document ---
:1990 Author Organization [facility] t Address [address] [place] [address] Care Team Providers Name Role Phone Unavailable Unavailable Unavailable Problems This patient has no known problems. Allergies, Adverse Reactions, Alerts This patient has no known allergies or adverse reactions. Medications Ordered Filled Start Stop Current Ordering Indication Dosage Frequency Signature Comments Components Source Medication Medication Date Date Medication? Clinician (SIG) Name Name Lomaira Lomaira 2020-0 2020- No Ken [address] [facility] 9-08 10-08 Olivia 30 minutes [facility] BusPIRone BusPIRone 0 Yes Ken [address] [facility] HCl HCl 8-28 [facility] Sumatriptan Sumatriptan Yes Ken Take [...] week then [facility] 1 tab QD l [facility] NuvaRing NuvaRing Yes Ken [address] [facility] Olivia leave in [facility] for [facility] 3 weeks, l remove, Outpati and ent replace Clinics with a new ring after 7 day break Procedures This patient has no known procedures. Encounters Start End Encounter Admission Attending Care Care Encounter Source Date/Time Date/Time Type Type Clinicians Facility Department ID 2021-09-26 2021-09-26 ambulatory [facility] [id number] [facility] 2021-06-11 2021-06-11 Outpatient [facility] [id number] [facility] 2021-06-06 2021-06-06 Out[facility] [id number] [facility] 2021-05-28 2021-05-28 Outpatient [facility] [id number] [facility] 2021-05-12 2021-05-12 Out[facility] [id number] [facility] 2021-04-09 2021-04-09 Out[facility] [id number] [facility] 2021-04-09 2021-04-09 Out[facility] [id number] [facility] 2021-04-04 2021-04-04 Out[facility] [id number] [facility] 2021-03-31 2021-03-31 Out[facility] [id number] [facility] 2021-03-04 2021-03-04 Out[facility] [id number] [facility] 2021-02-26 2021-02-26 Outpatient [facility] [id number] [facility] 2021-02-21 2021-02-21 Outpatient [facility] [id number] [facility] 2021-01-17 2021[facility]01-17 Out[facility] [id number] [facility] 2020-12-20 2020-12-20 Out[facility] [id number] [facility] 2020-11-19 2020-11-19 Outpatient [facility] [id number] [facility] 2020-10-15 2020-10-15 Out[facility] [id number] [facility] 2020-10-08 2020-10-08 Out[facility] [id number] [facility] 2020-09-19 2020-09-19 Outpatient [facility] [id number] [facility] 2020-09-17 2020-09-17 Out[facility] [id number] [facility] 2020-08-20 2020-08-20 Out[facility] [id number] [facility] 2020-07-23 2020-07-23 [facility] [id number] [facility] 13[facility]30:00 13:30:00 t [employer] [facility] 2020-07-03 2020-07-03 [facility] [id number] [facility] 15:45:00 15:45:00 t [employer] [facility] 2020-06-24 2020-06-24 [facility] [id number] [facility] 13:45:00 13:45:00 t [place] [employer] [facility] 2020-05-27 2020-05-27 [facility] [id number] [facility] 14:00:00 14:00:00 t [place] [employer] [facility] 2020-05-21 2020-05-21 [facility] [id number] [facility] 11:23:00 11:23:00 t [place] [employer] [facility] 2020-05-03 2020-05-03 [facility] [id number] [facility] 10:15:00 10:15:00 t [employer] [facility] 2020-04-25 2020-04-25 [facility] [id number] [facility] 08:45:00 08:45:00 t [employer] [employer] [facility] 2020-04-09 2020-04-09 [facility] [id number] [facility] 16:15:00 16:15:00 t [place] [employer] [facility] 2018-08-09 2018-08-09 [facility] [id number] [facility] 13:00:00 13:00:00 t [employer] [facility] 2018-07-12 2018-07-12 [facility] [id number] [facility] 13:30:00 13:30:00 t [place] [employer] [facility] 2018-06-23 2018-06-23 [facility] [id number] [facility] 15:30:00 15:30:00 t [employer] [employer] - [facility] Results This patient has no known results.
== END 2021-09-26 13:12 | disposition home or self-care (01) ==
LOC: ER 11:21
DX: N39.0 Urinary tract infection, site not specified (principal)
CPT/HCPCS: 81003; 81015; 81025; 87077; 87086; 87088; 87186; 99283